=== PATIENT | male | born 1985 ===

== ENCOUNTER 2016-11-12 10:36 | Outpatient (CLI) | payer OTHER ==
--- NOTE | 2016-11-12 13:03 | Cat Scan Report ---
CT LUMBAR SPINE WITHOUT CONTRAST (CT DISCOGRAM): 08/12/17 CLINICAL: Low back pain without myelopathy. TECHNIQUE: Disc injections were performed at L3-4, L4-5 and L5-S1 prior to the CT by Dr. Hairston. Volumetric acquisition and 1.25-mm axial scan reconstructions without contrast. Sagittal and coronal reformats were performed.The injected discs were graded according to the Modified Simon Classification. FINDINGS: Normal vertebral body height, alignment and disk spaces. No fracture or subluxation. L1-2:Intact. L2-3:Intact. L3-4:Intact. Grade 0 extravasation. L4-5:Mild circumferential disc bulge. Grade 0 extravasation. L5-S1:Grade 5 central posterior extravasation. IMPRESSION: Grade 5 central posterior extravasation at L5-S1 and grade 0 extravasation at L3-4 and L4-5. Mild circumferential disc bulge at L4-5. No disc protrusions.
== END 2016-11-12 10:37 | disposition home or self-care (01) ==
LOC: SPVIMAG 10:36
PROVIDERS: ATTEND Physical Medicine & Rehabilitation
DX: M51.26 Other intervertebral disc displacement, lumbar region (principal)
CPT/HCPCS: 72131